=== PATIENT | female | born 1960 ===

== ENCOUNTER 2024-04-13 13:51 | Emergency (ER) | payer MEDICAID | END 2024-04-13 14:48 | disposition home or self-care (01) | LOC: LB.ED 13:51 | DX: S61.031A Puncture wound without foreign body of right thumb without damage to nail, initial encounter (principal); R25.8 Other abnormal involuntary movements; I10 Essential (primary) hypertension; E03.9 Hypothyroidism, unspecified; Z79.899 Other long term (current) drug therapy; Z88.8 Allergy status to other drugs, medicaments and biological substances; X58.XXXA Exposure to other specified factors, initial encounter | CPT/HCPCS: 99283 ==